=== PATIENT | female | born 1980 | race Caucasian/White ===

== ENCOUNTER → 2018-03-06 | Outpatient (CLI) | payer BC ==
[2005-01-12 15:35] VITALS: TEMP 97
[~2018-03-06] MED LIST: CARVEDILOL; LORTAB 5/500 501 TAB PO; NO HOME MEDICATIONS
== END ==
LOC: COL.RAD 08:00
DX: M25.511 Pain in right shoulder (principal)
CPT/HCPCS: J3301; Q9967

== ENCOUNTER → 2018-05-08 | Outpatient (CLI) | payer BC | LOC: COL.RAD 07:56 | DX: M25.511 Pain in right shoulder (principal) | CPT/HCPCS: J3301; Q9967 ==

== ENCOUNTER → 2018-09-25 | Outpatient (CLI) | payer BC | LOC: COL.RAD 08:16 | DX: M25.511 Pain in right shoulder (principal) | CPT/HCPCS: J3301; Q9967 ==

== ENCOUNTER → 2020-10-10 | Outpatient (CLI) | payer OTHER | LOC: COL.RAD 07:30 | DX: M51.16 Intervertebral disc disorders with radiculopathy, lumbar region (principal); M51.37 Other intervertebral disc degeneration, lumbosacral region; M47.26 Other spondylosis with radiculopathy, lumbar region; M47.817 Spondylosis without myelopathy or radiculopathy, lumbosacral region; M21.371 Foot drop, right foot ==

== ENCOUNTER → 2021-01-24 | Outpatient (CLI) | payer OTHER | LOC: MHCPAIN 08:07 | DX: M47.817 Spondylosis without myelopathy or radiculopathy, lumbosacral region (principal); M79.7 Fibromyalgia; M53.3 Sacrococcygeal disorders, not elsewhere classified; G89.29 Other chronic pain | CPT/HCPCS: G0463 ==

== ENCOUNTER 2021-04-12 08:15 | Outpatient (RCR) | payer OTHER | END 2021-05-02 | LOC: WSPT | DX: M79.7 Fibromyalgia (principal) ==